=== PATIENT | female | born 1955 | race African-American/Black ===

== ENCOUNTER → 2016-06-25 | Outpatient (CLI) | payer OTHER ==
--- NOTE | 2016-06-25 10:43 | DIAGNOSTIC IMAGING REPORT ---
CHEST 2 VIEWS ROUTINE CLINICAL HISTORY: Sarcoidosis. Cough. Chest pain. COMPARISON STUDY: Chest radiograph December 26, 2015. FINDINGS: Upper lobe predominant interstitial thickening consistent with pulmonary fibrosis is unchanged. There is upper lobe volume loss. Distortion within the lungs is chronic. There is no consolidation to suggest superimposed pneumonia. Cardiomediastinal silhouette is stable. The appearance of the chest is unchanged. IMPRESSION: No change in upper lobe predominant fibrosis with volume loss. Findings consistent with provided history of sarcoidosis. No superimposed consolidation. Electronically signed by: Solitario Wiley M.D. 06/25/2016 10:41 AM Dictated Date/Time: 06/25/2016 10:36 AM
== END | disposition home or self-care (01) ==
LOC: C.RAD1850 09:46
PROVIDERS: ATTEND Internal Medicine Pulmonary Disease
DX: D86.0 Sarcoidosis of lung (principal); R07.9 Chest pain, unspecified; R05 Cough

== ENCOUNTER → 2017-07-17 | Outpatient (CLI) | payer OTHER ==
--- NOTE | 2017-07-17 10:21 | DIAGNOSTIC IMAGING REPORT ---
CHEST 2 VIEWS ROUTINE CLINICAL HISTORY: Chest pain. Cough. Sarcoidosis. COMPARISON STUDY: Chest radiograph June 25, 2016. FINDINGS: There is no pneumothorax or pleural effusion. Upper lobe predominant reticulonodular interstitial thickening with suspected pulmonary fibrosis and possible bronchiectasis is similar to previous exam. No superimposed consolidation is present. Cardiomediastinal silhouette is stable. IMPRESSION: No change in upper lobe predominant interstitial thickening suggestive of pulmonary fibrosis with possible bronchiectasis. No superimposed consolidation. Electronically signed by: Solitario Wiley M.D. 07/17/2017 10:19 AM Dictated Date/Time: 07/17/2017 10:18 AM
== END | disposition home or self-care (01) ==
LOC: C.RAD1850 09:59
PROVIDERS: ATTEND Internal Medicine Pulmonary Disease
DX: R07.9 Chest pain, unspecified (principal)